=== PATIENT | female | born 1950 | race Caucasian/White ===

== ENCOUNTER 2016-07-30 08:09 | Inpatient (IN) | payer OTHER ==
[~2016-07-30] VITALS: Ht 165.1 cm; Wt 102.0 kg
[2016-07-30] MEDS ORDERED: LOSA100T PO (09:02)
[2016-07-30] MEDS ORDERED: HYDR12.57 PO (09:02)
[2016-07-30] MEDS ORDERED: ALPR.5 PO (09:02)
[2016-07-30] MEDS ORDERED: LEXA10TA PO (09:02)
[2016-08-17] MEDS ORDERED: CHLORHEXIDINE GLUCONATE 4% SOLN 120 ML BTL TOP SCH (05:30)
[2016-08-17] MEDS ORDERED: ceFAZolin 2 GM PREMIX 50 ML IV SCH (05:30)
[2016-08-17] MEDS ORDERED: METOPROLOL TARTRATE 25 MG TAB PO PRN (05:45)
[2016-08-17] MEDS ORDERED: INSULIN HUMAN REGULAR 1,000 UNITS/10 ML VIAL SQ PRN (05:45)
[2016-08-17] MEDS ORDERED: CELE200C PO (05:50)
[2016-08-17 05:51] VITALS: BP 117/68; PULSE 83; RESP 16; TEMP 97.7; O2SAT 96
[2016-08-17] MEDS ORDERED: SODIUM CHLORID 0.9% 500 ML IV SCH (06:00)
[2016-08-17] MEDS ORDERED: LACTATED RINGER'S 1000 ML IV SCH (06:00)
[2016-08-17] MEDS ORDERED: GENTAMICIN SULFATE 80 MG/2 ML VIAL ONE (06:01)
[2016-08-17] MEDS ORDERED: MIDAZOLAM HCL 2 MG/2 ML VIAL ONE (06:21)
[2016-08-17] MEDS ORDERED: FAMOTIDINE 20 MG/2 ML VIAL ONE (06:27)
[2016-08-17] MEDS ORDERED: fentaNYL CITRATE 250 MCG/5 ML AMP ONE (06:47)
[2016-08-17] MEDS: TRANEXAMIC ACID IV SCH ×2 (07:00→07:11)
[2016-08-17] MEDS: EXPAREL PERI-ARTICULAR INJECTION (TOTAL VOL. 100 ML) P-ARTICULR SCH ×4 (07:00→07:22)
[2016-08-17] MEDS: SODIUM CHLORIDE 0.9% IV SCH ×2 (07:00→07:11)
[2016-08-17] MEDS ORDERED: SODIUM CHLORIDE 0.9% FLUSH 5 ML FLUSH IVF PRN (09:30)
[2016-08-17] MEDS ORDERED: MORPHINE SULFATE 4 MG/ML INJ IV PUSH PRN (09:30)
[2016-08-17] MEDS ORDERED: ZOLPIDEM TARTRATE 5 MG TAB PO PRN (09:30)
[2016-08-17] MEDS ORDERED: MAGNESIUM HYDROXIDE SUSP 30 ML CUP PO PRN (09:30)
[2016-08-17] MEDS ORDERED: Post-op Orders (for Pharmacy) MISC XX ONE (09:30)
[2016-08-17] MEDS ORDERED: TRANEXAMIC ACID INJ 0 MG in SODIUM CHLORIDE 0.9% INJ 100 ML IV SCH (09:30)
[2016-08-17] MEDS ORDERED: *morphine SULFATE 8 MG/ML PERIprocedure ONLY ONE ×3 (09:45→10:12)
[2016-08-17] MEDS ORDERED: *ONDANSETRON 4 MG VIAL PERIprocedural Use ONLY ONE (09:47)
[2016-08-17] MEDS: LACTATED RINGER'S 1000 ML INJ 1,000 ML IV SCH ×2 (09:53→21:48)
[2016-08-17] MEDS ORDERED: TRANEXAMIC ACID IV SCH (10:00)
[2016-08-17] MEDS ORDERED: SODIUM CHLORIDE 0.9% IV SCH (10:00)
[2016-08-17] MEDS: KETOROLAC TROMETHAMINE 30 MG/ML (IVP) VIAL IVP SCH ×3 (10:09→21:27)
[2016-08-17] MEDS ORDERED: ALPRAZolam 0.5 MG TAB PO PRN (10:15)
--- NOTE | 2016-08-17 11:13 | RADRPT ---
EXAM DATE/TIME: 08/17/2016 09:42 [place] COMPARISON: No previous studies available for comparison. INDICATIONS : Post op left knee arthroplasty. MEDICAL HISTORY : None. SURGICAL HISTORY : None. ENCOUNTER: Initial ACUITY: 1 day PAIN SCORE: Non-responsive. LOCATION: Left knee FINDINGS: AP and lateral views of the left knee were obtained and demonstrate the patient is status post total knee arthroplasty. The femoral and tibial components are intact and in normal alignment. There are po stoperative changes on the patella. A surgical drain is noted in place. CONCLUSION: Expected postoperative changes status post left knee arthroplasty. Wilfredo Bueno MD on August 17, 2016 at 11:02 Board Certified Radiologist. This report was verified electronically.
[2016-08-17] MEDS ORDERED: ePHEDrine/NS 25 MG/5 ML SYR IV ONE (12:00)
[2016-08-17] MEDS ORDERED: PROPOFOL 200 MG/20 ML AMP IV ONE (12:00)
[2016-08-17] MEDS ORDERED: ONDANSETRON HCL 4 MG/2 ML VIAL IV PUSH ONE (12:00)
[2016-08-17] MEDS: ACETAMINOPHEN/HYDROcodone 325 MG/7.5 MG TAB PO PRN ×2 (13:12→18:35)
[2016-08-17 15:45] VITALS: BP 106/59; PULSE 109; RESP 17; TEMP 96; O2SAT 95
--- NOTE | 2016-08-17 16:58 | MB ---
cc: SHIRLEY CORBIN MD DATE OF CONSULTATION 08/17/[address] Magdaleno REASON FOR CONSULTATION Assist in medical management postoperatively. HISTORY OF PRESENT ILLNESS The patient is very pleasant 66-year old female with significant past history of hypertension and arthritis. The patient has had arthritis for a long time. The patient has been to her primary care doctor as well as orthopedic. The patient failed outpatient therapy. The patient was advised to have surgical intervention and had a total knee arthroplasty today. The patient at present is feeling somewhat tired. She denies any headache, dizziness, nausea, vomiting, diarrhea or constipation. The patient denies any chest pain, diaphoresis or palpitations. The patient has no cough. No fever or chills. The patient denies any genitourinary symptoms. PAST MEDICAL HISTORY 1. Hypertension. 2. Arthritis. 3. Anxiety/depression. 4. Obesity. MEDICATIONS Reviewed, please MAR. ALLERGIES NO KNOWN DRUG ALLERGIES. REVIEW OF SYSTEMS Negative for ten systems. SOCIAL HISTORY The patient used to smoke up until 1999. He used to smoke one pack per day for 18 years. Rarely drinks. Does not do any drugs. Lives with her cousin. 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 FAMILY HISTORY Both parents had COPD secondary to smoking. Both had a heart condition. Brother . Brother had heart condition, has a stent as well. He is alive. PHYSICAL EXAMINATION GENERAL: The patient is alert and oriented, overweight, lying on bed without any apparent distress at present. VITAL SIGNS: The patient is afebrile, pulse is 97, respiratory rate 16, blood pressure 105/70, pulse ox of 97% on 2 liters. HEENT: Head is atraumatic, normocephalic. Eyes - pupils equal, round, reactive to light and accommodation. Negative conjunctival icterus. Mouth unremarkable. NECK: Supple. No increased JVD. Negative thyromegaly. Central trachea. RESPIRATORY: Clear to auscultation. CARDIOVASCULAR: Unable to hear any S3 gallop. GI: Abdomen soft and no organomegaly. Positive bowel sounds. MUSCULOSKELETAL: Extremities - no cyanosis or pedal edema appreciated. 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 Normal facial features, normal movement of bilateral upper extremities, can move her toes and has good sensation and same sensation in both bilateral toes. SKIN: Warm and dry. PSYCHIATRIC: Appropriate mood and affect. IMAGING STUDIES X-ray knee shows expected postoperative changes status post left knee arthroplasty. ASSESSMENT 1. Left knee arthroplasty for severe arthritis knee. 2. Hypertension. 3. Anxiety/depression. 4. Arthritis. RECOMMENDATIONS 1. Postop antibiotic, analgesics and anticoagulation and physical therapy as per orthopedic doctor. 2. CBC and BMP in the morning. 3. Continue home medication as indicated and ordered. 4. Monitor blood pressure. 5. Discussed with the patient. Further recommendation to follow as per patient progress. Thank you, Dr. Magdaleno, for consult. We will follow with you. Shirley Corbin MD JP/ /4:11 PM /4:48 PM
[2016-08-17] MEDS: ONDANSETRON HCL 4 MG/2 ML VIAL IVP PRN (17:26)
[2016-08-17 18:42] VITALS: O2SAT 95
[2016-08-17 20:35] VITALS: BP 118/58; PULSE 103; RESP 18; TEMP 96.5; O2SAT 94
[2016-08-17] MEDS: ASPIRIN EC 81 MG TABEC PO SCH (21:27)
[2016-08-17] MEDS: SODIUM CHLORIDE 0.9% FLUSH 5 ML FLUSH IVF SCH (21:27)
--- NOTE | 2016-08-17 22:42 | MP ---
cc: Sunita BERMUDEZ. DATE OF SURGERY 08/17/16 PREOPERATIVE DIAGNOSIS Primary osteoarthritis left knee POSTOPERATIVE DIAGNOSIS Primary osteoarthritis left knee OPERATION PERFORMED Left total knee arthroplasty with [place] Triathlon prosthesis (uncemented). SURGEON Rayna Bermudez MD ANESTHESIA Spinal with an adductor canal block and local. INDICATIONS AND FINDINGS This 66-year-old woman has a 16-year history of left knee pain that has recently become progressively worsening to the point that she can only walk a few feet because of the pain. She has difficulty with stairs and difficulty with chairs. She has intermittent clicking and popping. She has been treated with anti-inflammatory agents, activity modification, intra-articular corticosteroids and intra-articular Synvisc injections. She has tried ambulatory aids and weight loss. She has tried exercises without any of these helping restore function adequately. Physical findings showed medial laxity with palpable osteophytes and crepitation on motion. There is tenderness in the medial joint line. X-rays showed advanced arthritis in the knee with loss of articular cartilage to [id number] with medial, lateral and patellofemoral osteophytes and subchondral sclerosis particularly in the medial compartment. Operative findings were consistent with the above with there being severe medial compartment arthritis and also diffuse arthritis in the lateral patellofemoral compartments with osteophytes and subchondral sclerosis. In the central portion of the tibia, there was an area of relatively darkened bone that was firm and did not have any evidence of disruption, except that it was somewhat darkened. On viewing the opposite side that had been resected, there was some of this bone as well. This was used for biopsy. The prosthesis used was a [place] Triathlon prosthesis with the femur being a Press-Fit size 3 left cruciate retaining, the tibia being a titanium baseplate size 4 with a 9 mm X3 polyethylene cruciate-retaining spacer and a tritanium backed asymmetric patella size 32. PROCEDURE IN DETAIL The patient had an adductor canal block carried out preoperatively. She was transferred to the clean-air operating suite where a spinal anesthetic was administered. She was placed in a supine position on the operating table with a small bolster under the left hip. A tourniquet was placed about the left thigh. She was then prepped with alcohol, Hibiclens and Chloraprep and draped in the usual manner with the knee draped free. An appropriate time-out procedure was carried out. Local anesthesia was administered into the incision site prior to making the incision. The incision was then made from about three fingerbreadths above the superior medial pole of patella down to the tibial tubercle. The incision was deepened through the subcutaneous tissues to the retinacular structures which were exposed medially and laterally. A medial retinacular incision was made from the superior medial pole of patella down to the tibial tubercle and up in the quadriceps tendon splitting it longitudinally in the medial one-third. A patella was reflected. Medial and lateral dissection was carried out. The infrapatellar fat pad was debulked. The posterior surface of the patella was excised with the oscillating saw. A patella protector was applied. Attention was then directed to the femur. White side line was marked. A fenestration was made in the distal femur and the proximal tibia for intramedullary referencing guides. The distal femoral cutting guide and jig were assembled for a 5 degree 8-mm cut. The cutting block was stabilized with pins. The jig was removed. The distal femoral cut was completed. The sizing guide was positioned along white side line in the epicondylar axis. This was stabilized with pins. The size was determined to be a size three. A size three 4:1 cutting block was then positioned in place and stabilized with pins. Anterior and posterior cuts were made followed by posterior and anterior chamfer cuts. This was removed. Osteophytes were trimmed. Medial and lateral meniscectomies were initiated. The proximal tibia was exposed. The intramedullary tibial cutting guide and jig were assembled and positioned appropriately. This was then pinned in place for rotation. The depth of cut was verified with a stylus off the lateral side. Cutting block was stabilized with pins. The jig was removed. The spacer block was used to verify the appropriate position. With the cross pin placed through the block, the proximal tibial cut was completed with the oscillating saw taking care to prevent injury to associated structures. The tibial bone was removed. The osteophytes were trimmed. The meniscectomies were completed. The posterior condyles were debrided with the osteotome. Local anesthesia was administered throughout the knee at this time. The tibial baseplate which was a size four was positioned in place. A 9 mm spacer was inserted. The femoral component was impacted into place. The tibia was stabilized in appropriate position and held with pins. The patella drill guide was positioned in place and patella drill holes made. The patella trial was positioned. The knee was taken through a range of motion which was easily 0 degrees extension to 145 degrees of flexion. Stability was excellent throughout the entire range. The tracking of the patella was normal. There was no instability. The patella trial was removed. The femoral drill holes were made. The femoral trial was removed. The tibial spacer was removed. The tibial punch was impacted through the guide and removed. The tibial baseplate was removed. The tibial drill guide was positioned in place and drill holes made. Bone plugs were placed in the distal femur and proximal tibia through its intervals The bone was carefully inspected in the tibia. The facing bone was identified and appropriate section of this was removed in order to send as a specimen. The bone itself was firm and solid but had a somewhat different color to it. The cut ends of bone were then cleaned with pulse lavage. A tibial baseplate size four tritanium was impacted into placement at the tibia and seated appropriately. The 9-mm spacer was inserted and seated appropriately. The femoral component was then seated on the cleaned distal femur. The patella was then seated into the patella with the patella vice. The remainder of the Exparel was injected throughout the knee. Drains were brought out the superolateral aspect of the suprapatellar pouch. Wound closure then commenced using 0 Vicryl interrupted [id number] sutures for retinacular structures, 2-0 Vicryl interrupted simple sutures with buried knots for the subcutaneous tissues and 4-0 Monocryl continuous subcuticular closure for the skin. The wound was dressed with Steri-Strips followed by 4x4s, sterile Sof-Rol, cooling pad, further sterile Sof-Rol and Yang bandage from the base of the toe to mid thigh. The patient was transferred from the operating room to the recovery room in satisfactory condition having tolerated the procedure well. Counts were correct. Specimen bone from the tibial eminence for microscopic evaluation. Estimated blood loss 250 mm. MD FRANK Barraza/ /9:27 AM /10:13 PM
[2016-08-17 23:50] VITALS: BP 114/59; PULSE 97; RESP 18; TEMP 96.7; O2SAT 94
[2016-08-18] MEDS: ACETAMINOPHEN/HYDROcodone 325 MG/7.5 MG TAB PO PRN ×4 (02:40→14:58)
[2016-08-18] MEDS: KETOROLAC TROMETHAMINE 30 MG/ML (IVP) VIAL IVP SCH ×2 (02:40→10:22)
[2016-08-18 04:15] VITALS: BP 121/57; PULSE 98; RESP 18; TEMP 97.8; O2SAT 96
--- NOTE | 2016-08-18 06:48 | PD.ORT.PN ---
Subjective Post Op Day #: 1 Subjective Remarks She is doing well and has minimal pain. She is walking to the bathroom. She wants to go home. Range of Motion -4 to 85 degrees. Distance Walked 52 feet. Objective Vitals Vital Signs Date Time Temp Pulse Resp B/P Pulse Ox O2 Delivery O2 Flow Rate FiO2 08/18/16 04:15 97.8 98 18 121/57 96 08/17/16 23:50 96.7 97 18 114/59 94 08/17/16 20:35 96.5 103 18 118/58 94 08/17/16 18:42 Nasal Cannula 2.00 08/17/16 15:45 96.0 109 17 106/59 95 08/17/16 15:20 97.6 98 16 112/70 96 Nasal Cannula 2 08/17/16 15:00 96 16 108/69 96 Nasal Cannula 2 08/17/16 14:00 97 15 105/70 97 Nasal Cannula 2 08/17/16 13:00 98 15 101/62 97 Nasal Cannula 2 08/17/16 12:00 97.5 100 15 102/63 96 Nasal Cannula 2 08/17/16 11:30 102 14 121/54 95 Nasal Cannula 3 08/17/16 11:00 103 14 114/60 96 Nasal Cannula 3 08/17/16 10:30 100 14 121/63 95 Nasal Cannula 3 08/17/16 10:15 96 14 132/72 95 Nasal Cannula 4 08/17/16 10:00 95 14 137/75 95 Nasal Cannula 4 08/17/16 09:45 95 12 130/72 96 Simple Mask 8 08/17/16 09:33 98.0 93 12 135/77 94 Simple Mask 8 I/O 08/17/16 08/17/16 08/17/16 08/18/16 08/18/16 08/18/16 07:00 15:00 23:00 07:00 15:00 23:00 Intake Total 1200 ml 1265 ml 480 ml Output Total 280 ml 230 ml 40 ml Balance 920 ml 1035 ml 440 ml Intake Oral 200 ml 965 ml 480 ml IV Total 100 ml 300 ml Other 900 ml Output Urine Total 0 ml Drainage Total 30 ml 230 ml 40 ml Estimated Blood Loss 250 ml # Voids 4 3 # Bowel Movements 0 0 Imaging Last 72 hours Impressions Knee X-Ray 08/17/16 0000 Signed Impressions: Service Date/Time: Wednesday, August 17, 2016 09:42 - CONCLUSION: Expected postoperative changes status post left knee arthroplasty. Wilfredo Bueno MD Objective Remarks She is resting comfortably, supine in bed in the CPM. The original dressing is dry and intact. The neurovascular status is intact. Assessment & Plan Ortho Post Op Day #: 1 Problem List: (1) Status post total left knee replacement Plan: Continue postop care and PT. Assessment and Plan Condition: Good. Orthopaedically stable. DVT prophylaxis: ALEC stockings, sequentials, early mobilization, ASA. Discharge plans: Home with [facility], today. Has appointment. Rx: [place] 5/325 Lizett Magdaleno MD (Charles) Aug 18, 2016 06:48
[2016-08-18] MEDS: ASPIRIN EC 81 MG TABEC PO SCH (08:15)
[2016-08-18 08:16] VITALS: BP 105/55; PULSE 103; RESP 18; TEMP 98.5; O2SAT 94
[2016-08-18] MEDS ORDERED: HYDR-3580 PO (08:29)
[2016-08-18] MEDS ORDERED: ASPI81TA11 PO (08:29)
[2016-08-18 08:31] LABS: HEMATOCRIT 31.6 % (35.0-46.0); MEAN CELL VOLUME 86.9 FL (80.0-100.0); MEAN CORPUSCULAR HEMOGLOBIN 29.1 PG (27.0-34.0); MEAN CORPUSCULAR HGB CONC 33.5 % (32.0-36.0); PLATELET COUNT 218 TH/MM3 (150-450); RED BLOOD COUNT 3.64 MIL/MM3 (4.00-5.30); RED CELL DISTRIBUTION WIDTH 13.6 % (11.6-17.2); REVIEW FLAG FINAL; WHITE BLOOD COUNT 9.7 TH/MM3 (4.0-11.0)
--- NOTE | 2016-08-18 08:31 | HHI.FF ---
Face to Face Verification Diagnosis: (1) Status post total left knee replacement Physical Therapy Gait training Knee: Total knee, Protocol: Left, Gait training, Full weight bearing Left LE Weight Bearing: WB as tolerated Left LE Range of Motion: Active ROM (AROM, AAROM, PROM, PRE. ROM goal is 0 to 135 degrees.) Nursing Nursing: Dressing changes Dressing Changes: Daily dressing change, Coverderm/Primapore Additional Instructions Remove steristrips on postop day 14. I have seen patient Sandy Hanks on 08/18/16. My clinical findings support the need for the requested home health care services because: Ltd mobility - disease progression Limited ability to care for self High risk of falls I certify that my clinical findings support that this patient is homebound because: Post-op weakness Unsteady gait/balance Unsafe to leave home unassisted Lizett Magdaleno MD (Charles) Aug 18, 2016 08:31
[2016-08-18 08:38] LABS: BICARBONATE 27.2 MEQ/L (21.0-32.0); POTASSIUM 3.9 MEQ/L (3.5-5.1)
[2016-08-18] MEDS ORDERED: ESCITALOPRAM OXALATE 10 MG TAB PO SCH (09:00)
[2016-08-18] MEDS ORDERED: LOSARTAN 50 MG TAB PO SCH (09:00)
[2016-08-18] MEDS: SODIUM CHLORIDE 0.9% FLUSH 5 ML FLUSH IVF SCH (09:00)
[2016-08-18] MEDS ORDERED: CELECOXIB 200 MG CAP PO SCH (09:00)
[2016-08-18] MEDS ORDERED: HYDROCHLOROTHIAZIDE 12.5 MG CAP PO SCH (09:00)
[2016-08-18 09:40] VITALS: O2SAT 93
[2016-08-18] MEDS: ONDANSETRON HCL 4 MG/2 ML VIAL IVP PRN (10:23)
[2016-08-18 12:06] VITALS: BP 112/64; PULSE 100; RESP 18; TEMP 97.5; O2SAT 95
--- NOTE | 2016-08-18 13:53 | HHI.PR ---
Subjective Remarks No chest pain No shortness of breath Nausea, occasional No emesis No headache No BM since admission, M OM already given Objective Objective Results - Vital Signs Date Time Temp Pulse Resp B/P Pulse Ox O2 Delivery O2 Flow Rate FiO2 08/18/16 11:22 20 08/18/16 11:22 20 08/18/16 09:40 93 Nasal Cannula 21 08/18/16 08:16 98.5 103 18 105/55 94 08/18/16 04:15 97.8 98 18 121/57 96 08/17/16 23:50 96.7 97 18 114/59 94 08/17/16 20:35 96.5 103 18 118/58 94 08/17/16 18:42 95 Nasal Cannula 2.00 08/17/16 18:42 Nasal Cannula 2.00 08/17/16 15:45 96.0 109 17 106/59 95 08/17/16 15:20 97.6 98 16 112/70 96 Nasal Cannula 2 08/17/16 15:00 96 16 108/69 96 Nasal Cannula 2 08/17/16 14:00 97 15 105/70 97 Nasal Cannula 2 I/O 08/17/16 08/17/16 08/17/16 08/18/16 08/18/16 08/18/16 06:59 14:59 22:59 06:59 14:59 22:59 Intake Total 1200 ml 1265 ml 480 ml Output Total 280 ml 230 ml 40 ml Balance 920 ml 1035 ml 440 ml Intake Oral 200 ml 965 ml 480 ml IV Total 100 ml 300 ml Other 900 ml Output Urine Total 0 ml Drainage Total 30 ml 230 ml 40 ml Estimated Blood Loss 250 ml # Voids 4 3 # Bowel Movements 0 0 Result Diagram: 08/18/1612 08/18/16711 ROS General: Weakness, Other (10 point ROS done. Positives noted weakness tolerating, status post surgical procedure, constipation mild, all other systems negative or unremarkable) GI: BM (no BMs since admission, took MOM, feels she'll go after discharge.), N/ V (no vomiting) Neuro/MS: Other (minimal edema left leg, status post surgery) Physical Exam Physical Exam PHYSICAL EXAMINATION GENERAL: The patient is alert and oriented, overweight, lying on bed without any apparent distress at present. HEENT , traumatic ,normocephalic. Eyes - pupils equal, round, reactive to light and accommodation. Negative conjunctival icterus. Mouth unremarkable. NECK: Supple. No increased JVD. Negative thyromegaly. Central trachea. RESPIRATORY: Clear to auscultation=, anterior and posterior CARDIOVASCULAR: Heart sounds within normal limits no murmurs rubs or gallops appreciated, distant GI: Abdomen soft and no organomegaly. Positive bowel sounds. MUSCULOSKELETAL: Extremities - no cyanosis or pedal edema appreciated. 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 Normal facial features, normal movement of bilateral upper extremities, can move her toes and has good sensation and same sensation in both bilateral toes. SKIN: Warm and dry. PSYCHIATRIC: Appropriate mood and affect. IMAGING STUDIES X-ray knee shows expected postoperative changes status post left knee arthroplasty. Objective Remarks I'm going home and a little bit. I'm feeling fine. Bowels move when I get home A/P Assessment and Plan ASSESSMENT 1. Left knee arthroplasty for severe arthritis knee. 2. Hypertension. 3. Anxiety/depression. 4. Arthritis. RECOMMENDATIONS Postop antibiotic, analgesics and anticoagulation and physical therapy as per orthopedic doctor., Also seeing OT for evaluation and treatment Continue home medication as indicated and ordered, reconciled Vital signs stable, afebrile, BP 111/55, normal heart rate and pulse Discussed with the patient, monitoring of blood sugar and dietary control. States PCP has been following with her, borderline mildly elevated A1c Discharge planning today. Available for any needs. Labs reviewed, anemia, status post surgical blood loss probable. Asymptomatic Pain control DVT prophylaxis with aspirin Suellen Corbin MD JP/ Discharge Planning Home Discussed With: Nurse, Family (patient), Other (Dr. Corbin, patient seen on his behalf, discussed plan of care) Dana Heaton Aug 18, 2016 13:53
[2016-08-18] MEDS ORDERED: DOCUSATE SODIUM 100 MG CAP PO SCH (21:00)
== END 2016-08-18 15:11 | disposition home health service (06) | DRG 470 ==
LOC: HSDI 08-17 05:11 → N06A 08-17 15:42
PROVIDERS: ADMIT Orthopaedic Surgery; ATTEND Orthopaedic Surgery
PROC: 3E0T3CZ (ICD-10-PCS; 2016-08-17)
PROC: 0SRD0JA Replacement of Left Knee Joint with Synthetic Substitute, Uncemented, Open Approach (ICD-10-PCS; principal; 2016-08-17 06:49)
DX: M17.12 Unilateral primary osteoarthritis, left knee (principal); I10 Essential (primary) hypertension; E66.9 Obesity, unspecified; F32.9 Major depressive disorder, single episode, unspecified; F41.9 Anxiety disorder, unspecified; D64.9 Anemia, unspecified; Z68.37 Body mass index [BMI] 37.0-37.9, adult; Z87.891 Personal history of nicotine dependence
CPT/HCPCS: 73560; 80048; 85027; 86850; 86900; 86901; 87015; 87070; 87102; 87116; 87176; 87205; 87206; 94150; C1776; C9290; J0690; J1580; J1885; J2250; J2270; J2405; J3010; J7120

== ENCOUNTER → 2016-07-30 | Outpatient (CLI) | payer OTHER ==
[~2016-07-30] MED LIST: ALPR.5 PO; ASPI81TA11 PO; CELE200C PO; DIOV160T6 PO; HYDR-3580 PO; HYDR12.56 PO; HYDR12.57 PO; LEXA10TA PO; LOSA100T PO
[2016-07-30 09:38] LABS: APTT (PATIENT) 25.6 SEC (24.3-30.1); PROTHROMBIN TIME - PATIENT 10.6 SEC (9.8-11.6)
[2016-07-30 09:42] LABS: HEMATOCRIT 40.4 % (35.0-46.0); MEAN CELL VOLUME 84.7 FL (80.0-100.0); MEAN CORPUSCULAR HEMOGLOBIN 28.8 PG (27.0-34.0); PLATELET COUNT 294 TH/MM3 (150-450); RED BLOOD COUNT 4.77 MIL/MM3 (4.00-5.30); RED CELL DISTRIBUTION WIDTH 13.6 % (11.6-17.2); REVIEW FLAG FINAL; WHITE BLOOD COUNT 10.9 TH/MM3 (4.0-11.0)
[2016-07-30 10:07] LABS: BACTERIA, URINE OCC /hpf; BLOOD, URINE NEG (NEG); GLUCOSE,URINE NEG (NEG); KETONE, URINE TRACE mg/dL (NEG); MUCUS URINE FEW /lpf (OCC); NITRITE,URINE NEG (NEG); SQUAMOUS EPITHELIAL CELL URINE 1 /hpf (0-5); URINE COLOR YELLOW (YELLW/STRAW)
[2016-07-30 10:09] LABS: COMMENT (UR) CULT NOT INDICATED; CULTURE IF INDICATED CULT NOT INDICATED
--- NOTE | 2016-08-02 23:59 | EKG ---
Date Performed: 07/30/2016 Time Performed: 08:51:23 PTAGE: 66 years EKG: Sinus rhythm MODERATE T-WAVE ABNORMALITY, CONSIDER ANTERIOR ISCHEMIA ABNORMAL ECG PREVIOUS TRACING : 08/03/2010 12.40 Compared to prior tracing no significant change DOCTOR: Seth Virgen Interpretating Date/Time 08/02/2016 23:59:12
== END ==
LOC: CPRE 08:06
PROVIDERS: ATTEND Orthopaedic Surgery
DX: Z01.810 Encounter for preprocedural cardiovascular examination (principal); M17.12 Unilateral primary osteoarthritis, left knee; M79.609 Pain in unspecified limb; I10 Essential (primary) hypertension; Z01.812 Encounter for preprocedural laboratory examination
CPT/HCPCS: 36415; 81001; 85027; 85610; 85730; 93005

== ENCOUNTER → 2016-07-30 | Outpatient (CLI) | payer OTHER ==
[2016-07-30 10:34] LABS: ALKALINE PHOSPHATASE 86 U/L (45-117); ALT (GPT) 19 U/L (10-53); ANION GAP 10 MEQ/L (5-15); AST (GOT) 11 U/L (15-37); BICARBONATE 25.3 MEQ/L (21.0-32.0); BLOOD UREA NITROGEN 11 MG/DL (7-18); CHLORIDE 103 MEQ/L (98-107); GLOMERULAR FILTRATION RATE 81 ML/MIN (>89); GLUCOSE,FASTING 181 MG/DL (74-99); HDL CHOLESTEROL 57.5 MG/DL (40.0-60.0); LDL CHOLESTEROL 168 MG/DL (0-99); POTASSIUM 3.6 MEQ/L (3.5-5.1); SODIUM (NA) 138 MEQ/L (136-145); TOTAL BILIRUBIN ADULT 0.5 MG/DL (0.2-1.0)
== END ==
LOC: CLAB 08:22
PROVIDERS: ATTEND Family Medicine
DX: M17.9 Osteoarthritis of knee, unspecified (principal); E78.4 Other hyperlipidemia; I10 Essential (primary) hypertension; R63.5 Abnormal weight gain
CPT/HCPCS: 80053; 80061; 82306; 82607; 82746; 83540; 84443

== ENCOUNTER → 2017-02-04 | Outpatient (CLI) | payer OTHER ==
[~2017-02-04] MED LIST changes: -DIOV160T6 PO; -HYDR12.56 PO
[2017-02-04 10:27] LABS: AUTOMATED NEUTROPHIL # 5.4 TH/MM3 (1.8-7.7); BASOPHIL % 0.5 % (0.0-2.0); EOSINOPHIL # 0.4 TH/MM3 (0-0.4); EOSINOPHIL % 3.9 % (0.0-4.0); HEMATOCRIT 39.1 % (35.0-46.0); HEMO FLAGS DIFF FINAL; LYMPH % 33.1 % (9.0-44.0); MEAN CELL VOLUME 83.9 FL (80.0-100.0); MEAN CORPUSCULAR HEMOGLOBIN 28.5 PG (27.0-34.0); MONO % 3.6 % (0.0-8.0); NEUT % 58.9 % (16.0-70.0); PLATELET COUNT 269 TH/MM3 (150-450); RED BLOOD COUNT 4.66 MIL/MM3 (4.00-5.30); RED CELL DISTRIBUTION WIDTH 13.3 % (11.6-17.2); WHITE BLOOD COUNT 9.1 TH/MM3 (4.0-11.0)
[2017-02-04 13:16] LABS: ALT (GPT) 19 U/L (10-53); ANION GAP 11 MEQ/L (5-15); AST (GOT) 15 U/L (15-37); BICARBONATE 24.5 MEQ/L (21.0-32.0); BLOOD UREA NITROGEN 13 MG/DL (7-18); CHLORIDE 103 MEQ/L (98-107); GLOMERULAR FILTRATION RATE 85 ML/MIN (>89); MAGNESIUM 2.1 MG/DL (1.5-2.5); POTASSIUM 3.9 MEQ/L (3.5-5.1); SODIUM (NA) 138 MEQ/L (136-145)
[2017-02-04 13:25] LABS: ALKALINE PHOSPHATASE 91 U/L (45-117); HDL CHOLESTEROL 41.5 MG/DL (40.0-60.0); LDL CHOLESTEROL 137 MG/DL (0-99); TOTAL BILIRUBIN ADULT 0.6 MG/DL (0.2-1.0)
== END ==
LOC: OLAB 09:53
PROVIDERS: ATTEND Family Medicine
DX: E78.4 Other hyperlipidemia (principal); I10 Essential (primary) hypertension; M25.50 Pain in unspecified joint
CPT/HCPCS: 36415; 80053; 80061; 83735; 84443; 85025

== ENCOUNTER → 2017-06-01 | Outpatient (CLI) | payer OTHER ==
[~2017-06-01] MED LIST changes: -ASPI81TA11 PO; +ASPI81TA23 PO
[2017-06-01 12:46] LABS: CREATININE RANDOM URINE 75 MG/DL (27-300)
[2017-06-01 12:56] LABS: MICRO ALBUMIN RANDOM URINE RAW LESS THAN 5.0 MG/L (0.0-30.0)
== END ==
LOC: OLAB 10:00
PROVIDERS: ATTEND Family Medicine
DX: R73.01 Impaired fasting glucose (principal)
CPT/HCPCS: 82043

== ENCOUNTER → 2017-09-13 | Outpatient (CLI) | payer OTHER ==
[2017-09-13 14:02] LABS: ALBUMIN 3.3 GM/DL (3.4-5.0); AST (GOT) 15 U/L (15-37); BICARBONATE 26.6 MEQ/L (21.0-32.0); BLOOD UREA NITROGEN 16 MG/DL (7-18); CHLORIDE 102 MEQ/L (98-107); CHOLESTEROL 122 MG/DL (120-200); CREATININE 0.75 MG/DL (0.50-1.00); GLOMERULAR FILTRATION RATE 77 ML/MIN (>89); GLUCOSE,FASTING 145 MG/DL (74-99); SODIUM (NA) 141 MEQ/L (136-145)
[2017-09-13 14:03] LABS: ALT (GPT) 23 U/L (10-53)
[2017-09-13 14:13] LABS: ALKALINE PHOSPHATASE 69 U/L (45-117); CHOLESTEROL/ HDL RATIO 2.97 RATIO; LDL CHOLESTEROL 50 MG/DL (0-99); TOTAL BILIRUBIN ADULT 0.4 MG/DL (0.2-1.0); TOTAL PROTEIN 6.8 GM/DL (6.4-8.2); TRIGLYCERIDES 153 MG/DL (42-150)
[2017-09-13 16:39] LABS: HEMOGLOBIN A1C 6.8 % (4.3-6.0)
== END ==
LOC: OLAB 08:31
PROVIDERS: ATTEND Family Medicine
DX: E78.4 Other hyperlipidemia (principal); I10 Essential (primary) hypertension; E11.9 Type 2 diabetes mellitus without complications; E55.9 Vitamin D deficiency, unspecified; R63.5 Abnormal weight gain
CPT/HCPCS: 36415; 80053; 80061; 82306; 83036; 84443

== ENCOUNTER → 2017-12-14 | Outpatient (CLI) | payer OTHER ==
[2017-12-14 10:39] LABS: HEMATOCRIT 39.2 % (35.0-46.0); HEMOGLOBIN 13.1 GM/DL (11.6-15.3); MEAN CELL VOLUME 85.4 FL (80.0-100.0); MEAN CORPUSCULAR HEMOGLOBIN 28.6 PG (27.0-34.0); MEAN CORPUSCULAR HGB CONC 33.5 % (32.0-36.0); PLATELET COUNT 265 TH/MM3 (150-450); RED CELL DISTRIBUTION WIDTH 12.8 % (11.6-17.2); WHITE BLOOD COUNT 7.9 TH/MM3 (4.0-11.0)
[2017-12-14 14:03] LABS: ALBUMIN 3.2 GM/DL (3.4-5.0); ALT (GPT) 22 U/L (10-53); CHOLESTEROL 142 MG/DL (120-200)
[2017-12-14 14:07] LABS: AST (GOT) 11 U/L (15-37); CHOLESTEROL/ HDL RATIO 2.86 RATIO; HDL CHOLESTEROL 49.5 MG/DL (40.0-60.0); LDL CHOLESTEROL 62 MG/DL (0-99); TRIGLYCERIDES 151 MG/DL (42-150)
[2017-12-14 14:07] LABS: BILIRUBIN, URINE NEG (NEG); BLOOD, URINE NEG (NEG); GLUCOSE,URINE NEG (NEG); KETONE, URINE NEG (NEG); MUCUS URINE FEW /lpf (OCC); NITRITE,URINE NEG (NEG); PH, URINE 6.5 (5.0-8.5); SQUAMOUS EPITHELIAL CELL URINE <1 /hpf (0-5); TRANSITIONAL EPI CELLS, URINE <1 /hpf; URINE COLOR YELLOW (YELLW/STRAW); URINE LEUKOCYTE ESTERASE TRACE (NEG)
[2017-12-14 16:50] LABS: HEMOGLOBIN A1C 6.6 % (4.3-6.0)
== END ==
LOC: OLAB 10:13
PROVIDERS: ATTEND Family Medicine
DX: E88.09 Other disorders of plasma-protein metabolism, not elsewhere classified (principal); E11.9 Type 2 diabetes mellitus without complications; E78.4 Other hyperlipidemia
CPT/HCPCS: 36415; 80061; 81001; 82040; 82043; 82652; 83036; 84450; 84460; 85027